=== PATIENT | female | born 1980 | race Caucasian/White ===

== ENCOUNTER 2022-12-24 01:43 | Observation (INO) ==
[2022-12-24] MEDS ORDERED: IOPAMIDOL 100 ML BOTTLE IV ONE (01:44)
[2022-12-24] MEDS ORDERED: PHENobarb/HYOSCY/ATROPINE/SCOP 1 DOSE BOTTLE PO ONE (01:59)
[2022-12-24] MEDS ORDERED: KETOROLAC 30 MG/ML VIAL IV ONE (02:05)
[2022-12-24] MEDS ORDERED: 0.9 % SODIUM CHLORIDE 1,000 ML IV ONE (02:05)
[2022-12-24] MEDS ORDERED: ONDANSETRON 4 MG/2 ML VIAL IV ONE ×2 (02:05→08:47)
[2022-12-24 02:10] LABS: POC Calcium, Ionized 1.21 (1.16-1.32); POC Creatinine 0.6 (0.6-1.2); POC Potassium 3.3 (3.3-5.1)
--- NOTE | 2022-12-24 02:33 | Emergency Department Note ---
Abdominal Pain HPI General Chief Complaint: Abdominal Pain Stated Complaint: Abdominal Pain Time Seen by Provider: 12/24/22 01:53 Source: patient Mode of arrival: ambulatory Limitations: no limitations History of Present Illness HPI Narrative: Narrative: Patient presents ED with complaints of abdominal pain x6 hours prior to arrival. She rates her pain 8/10. She states his all over her belly but worse in her ep igastric region. She states she has a history of gastritis and takes omeprazole fairly consistently. She states it is a stabbing feeling. She denies fever, chills, hematemesis, melena, hematochezia, diarrhea, constipation, dysuria, hematuria, urinary frequency, flank pain, cardiac chest pain. States she does have some nausea and she vomited 1 time today. She denies any yrur-xlp-bnserin medication. She denies any other alleviating or aggravating factors. Related Data Home Medications Medication Instructions Recorded Confirmed cholecalciferol (vitamin D3) 4,000 unit PO QDAY 03/11/21 09/18/22 chromium polynicotinate-alpha 1 cap PO BID 03/11/21 09/18/22 lipoic acid 200 mcg-60 mg capsule fexofenadine [Amber Allergy] PO QDAY 03/11/21 09/18/22 Previous Rx's Medication Instructions Recorded ciclopirox 8 % topical solution 1 applic topical QHS 4 weeks #6.6 03/14/21 mL clobetasol 0.05 % topical cream 1 applic topical BID 1 week #30 11/18/21 grams trazodone 50 mg tablet 25 mg PO QDAY #30 tabs 06/03/22 omeprazole 20 mg capsule,delayed 20 mg PO QDAY PRN gerd #60 caps 06/19/22 release amoxicillin 875 mg tablet 875 mg PO BID 7 days #14 tabs 09/18/22 drospirenone 3 mg-ethinyl 1 tab PO QDAY #84 tabs 09/18/22 estradiol 0.02 mg tablet (RALEIGH (28)) escitalopram oxalate 5 mg tablet 5 mg PO QDAY #90 tabs 09/18/22 (Lexapro) fluconazole 150 mg tablet 150 mg PO Q3D 2 doses #2 tabs 09/18/22 (Diflucan) alprazolam 1 mg tablet 0.5 mg PO .COMPLEX #4 tabs 10/31/22 Allergies Allergy/AdvReac Type Severity Reaction Status Date / Time No Known Drug Allergies Allergy Verified 09/18/22 10:05 Review of Systems ROS ROS Narrative: Narrative: All systems ED: reviewed and negative except as stated. [facility] Narrative Patient History Narrative: Narrative: Medical/Surgical/Family History All Active Problems (Updated 12/24/22 @ 05:47 by Jeevan Carias DO) Cholelithiasis (Acute) Hot flashes (Acute) GERD (gastroesophageal reflux disease) (Acute) Toenail fungus (Acute) Nausea (Chronic) Seasonal allergies (Chronic) Gastritis (Chronic) Left foot pain (Chronic) Menorrhagia (Chronic) Weight gain (Chronic) Seborrheic keratosis (Chronic) Keratosis pilaris (Chronic) HPV (human papilloma virus) infection (Chronic) Fibrocystic change of breast (Chronic 09/25/14) Anxiety (Chronic) Allergic rhinitis (Chronic) Cystic acne (Chronic) Medical History Allergic rhinitis Anemia in high school, iron deficiency anemia - treated with oral iron and not reoccured Anxiety Chest pain Cystic acne Fibrocystic change of breast (09/25/14) Gastritis HPV (human papilloma virus) infection 18 yrs old - has not had an abnormal pap since cryotherapy done Hyperlipidemia 2006 - that has been diet controlled; attributes this to Adkin's diet, no problems since that time Keratosis pilaris Left foot pain Menorrhagia Nausea Seasonal allergies Seborrheic keratosis Weight gain Surgical History History of breast surgery 2010 - breast lift History of cryosurgery 18 yrs old - of lesion - for abnormal pap smear; no reccurance History of laparoscopy 2002 - exploratory for abdominal pain that was normal per Dr. Mondragon History of right oophorectomy 2009 right ovary removed for ovarian torsion Family History Grandmother Alzheimer's disease Maternal Son Asthma Melanoma of skin Mother Depression Diabetes mellitus, type II insulin controlled Melanoma of skin Thyroid disorder Father Essential hypertension Brother Melanoma of skin Grandfather Alzheimer's disease Maternal Social History Smoking Status: Never smoker Alcohol Intake Frequency: does not drink Substance Use: does not use Exam Narrative Narrative: Narrative: General Limitations: no limitations General appearance: Present grimacing ENT ENT: Present normal oropharynx and mucous membranes moist Chest Chest: Present normal inspection; Absent tenderness Respiratory Respiratory: Present normal lung sounds bilaterally; Absent respiratory distress Cardiovascular Cardiovascular: Present regular rate and normal rhythm Adbominal Abdominal: Present soft, tenderness and normal bowel sounds Expanded Abdominal Abdominal Tenderness: Present RLQ, LLQ and epigastrium Extremities Extremities: Present normal capillary refill Back Back: Absent CVA tenderness (R) or CVA tenderness (L) Neurological Neurological: Present alert and oriented X3 Psychiatric Psychiatric: Present normal affect and normal mood Skin Skin: Present warm (WNL) and intact Course Course Course Narrative: Patient was evaluated for abdominal pain. Labs were obtained unremarkable with exception of mildly elevated amylase and lipase. Liver enzymes were unremarkable. Urine unremarkable. Urine negative. Patient with IV fluids, fentanyl and Toradol as well as some Zofran and her pain did improve as well as her nausea. CT abdomen pelvis obtained with image of myself which showed multiple calcified stones within the gallbladder with mild gallbladder wall thickening. We will obtain ultrasound to evaluate for hepatic duct dilatation and for further evaluation of the gallbladder. Patient is unsure if she wants to have surgery. Patient will be signed out to Dr. Cunha pending right upper quadrant ultrasound and discussion with general surgery. Vital Signs Vital signs: Vital Signs Temperature 97.9 F 12/24/22 01:44 Pulse Rate 69 12/24/22 01:44 Respiratory Rate 18 12/24/22 01:44 Blood Pressure 159/105 12/24/22 01:44 Pulse Oximetry (%) 99 12/24/22 01:44 Oxygen Delivery Method Room Air 12/24/22 01:44 Temperature 97.9 F 12/24/22 01:44 Pulse Rate 81 12/24/22 05:54 Respiratory Rate 18 12/24/22 01:44 Blood Pressure 119/94 12/24/22 05:54 Pulse Oximetry (%) 97 12/24/22 05:54 Oxygen Delivery Method Room Air 12/24/22 01:44 MDM MDM Narrative Medical decision making narrative: Narrative: Differential Diagnosis Differential Diagnosis: Small bowel obstruction, pancreatitis, diverticulitis, cholecystitis, gastr Medical Records Medical records reviewed: Yes I reviewed the patient's medical records. Lab Data Lab results reviewed: Yes I reviewed the patient's lab results. 12/24/22 02:05 Labs: Lab Results 12/24/22 12/24/22 12/24/22 Range/Units 02:05 02:05 02:06 WBC 6.0 (4.5-11.0) K/mcL RBC 4.66 (3.59-5.38) M/mcL Hgb 12.6 (11.2-15.7) g/dL Hct 37.9 (34.1-44.9) % POC Hct 38.0 (36-48) MCV 81.3 (80.0-100.0) fL MCH 27.0 (26.0-34.0) pg MCHC 33.2 (31.0-36.0) g/dL RDW 13.4 (11.5-14.5) % Plt Count 278 (140-440) K/mcL MPV 10.2 (8.8-12.5) fL Immature Gran % (Auto) 0.2 (0.0-0.5) % Neut % (Auto) 27.3 L (38.0-78.0) % Lymph % (Auto) 61.0 H (15.5-49.0) % [place] % (Auto) 8.5 (1.0-12.0) % Eos % (Auto) 2.3 (0.0-7.0) % Baso % (Auto) 0.7 (0.0-2.0) % Lymph # (Auto) 3.67 (1.50-4.80) K/mcL [place] # (Auto) 0.51 (0.10-0.90) K/mcL Eos # (Auto) 0.14 (0.00-0.70) K/mcL Baso # (Auto) 0.04 (0.00-0.30) K/mcL Immature Gran # 0.01 (0.00-0.05) K/mcl Absolute Neutrophils 1.65 L (1.80-8.00) K/mcL POC Sodium 143 (133-145) POC Potassium 3.3 (3.3-5.1) POC Chloride 107 (96-108) POC Total CO2 25.0 (22-30) POC BUN 12 (6-20) POC Creatinine 0.6 (0.6-1.2) POC Glucose 130 H (70-105) POC WB Ioniz Calcium 1.21 (1.16-1.32) Total Bilirubin < 0.2 (0.1-1.0) mg/dL Direct Bilirubin < 0.2 (0-0.3) mg/dL AST 10 (<32) U/L ALT 10 (<40) U/L Alkaline Phosphatase 40 (39-117) U/L Total Protein 6.5 (5.9-8.4) gm/dL Albumin 4.1 (3.2-5.2) gm/dL Globulin 2.4 (2.2-3.7) gm/dL Amylase 101 H (28-100) U/L Lipase 75 H (7-60) U/L ED POC Tests ED POC Tests: HCG POC Results Negative Core Measures AMI Core Measures Followed: Yes Discharge Plan Patient/Caregiver Discharge Instructions Pt seen by HEATING AND REFRIGERATION INSPECTOR/PA only: No Clinical Impression: Cholelithiasis Patient Disposition: Still a Patient Condition: Good Follow up with: Yecenia Brice PA-C [Primary Care Provider] - Prescriptions: No Action trazodone 50 mg tablet 25 mg PO QDAY Qty: 30 0RF omeprazole 20 mg capsule,delayed release(DR/EC) 20 mg PO QDAY PRN (Reason: gerd) Qty: 60 0RF alprazolam 1 mg tablet 0.5 mg PO .COMPLEX Qty: 4 0RF Rx Instructions: 0.5 mg PO 30 minutes before flight; ciclopirox 8 % solution 1 applic topical QHS 28 Days Qty: 6.6 0RF chromium polynicotin-alip acid 200-60 mcg-mg capsule 1 cap PO BID fexofenadine PO QDAY cholecalciferol (vitamin D3) 4,000 unit PO QDAY clobetasol 0.05 % cream 1 applic topical BID 7 Days Qty: 30 0RF amoxicillin 875 mg tablet 875 mg PO BID 7 Days Qty: 14 0RF fluconazole [Diflucan] 150 mg tablet 150 mg PO Q3D Qty: 2 0RF escitalopram oxalate [Lexapro] 5 mg tablet 5 mg PO QDAY Qty: 90 3RF drospirenone-ethinyl estradiol [RALEIGH (28)] 3-0.02 mg tablet 1 tab PO QDAY Qty: 84 3RF
[2022-12-24 03:15] LABS: Basophils # (Auto) 0.04 K/mcL (0.00-0.30); Basophils % (Auto) 0.7 % (0.0-2.0); Eosinophils # (Auto) 0.14 K/mcL (0.00-0.70); Eosinophils % (Auto) 2.3 % (0.0-7.0); Hematocrit 37.9 % (34.1-44.9); Hemoglobin 12.6 g/dL (11.2-15.7); Lymphocytes # (Auto) 3.67 K/mcL (1.50-4.80); Mean Cell Volume 81.3 fL (80.0-100.0); Mean Corpuscular HGB Conc 33.2 g/dL (31.0-36.0); Mean Platelet Volume 10.2 fL (8.8-12.5); Monocytes # (Auto) 0.51 K/mcL (0.10-0.90); Monocytes % (Auto) 8.5 % (1.0-12.0); Neutrophils % (Auto) 27.3 % (38.0-78.0); Platelet Count 278 K/mcL (140-440); RBC 4.66 M/mcL (3.59-5.38); Red Cell Distribution Width 13.4 % (11.5-14.5)
[2022-12-24 03:37] LABS: Amylase 101 U/L (28-100)
[2022-12-24 03:42] LABS: ALT/SGPT 10 U/L (<40); AST/SGOT 10 U/L (<32); Albumin 4.1 gm/dL (3.2-5.2); Alkaline Phosphatase 40 U/L (39-117); Bilirubin,Direct < 0.2 mg/dL (0-0.3); Bilirubin,Total < 0.2 mg/dL (0.1-1.0); Globulin 2.4 gm/dL (2.2-3.7)
--- NOTE | 2022-12-24 08:05 | Emergency Department Note ---
Course Course Course Narrative: Patient is a 42-year-old female who was signed out to me by Dr. Carias. Briefly, patient presented due to abdominal pain. A CT scan was performed and there was some suggestion of gallbladder wall thickening, so an ultrasound was ordered. This was pending at the time of signout. Vital Signs Vital signs: Vital Signs Temperature 97.9 F 12/24/22 01:44 Pulse Rate 69 12/24/22 01:44 Respiratory Rate 18 12/24/22 01:44 Blood Pressure 159/105 12/24/22 01:44 Pulse Oximetry (%) 99 12/24/22 01:44 Oxygen Delivery Method Room Air 12/24/22 01:44 Temperature 97.9 F 12/25/22 18:45 Pulse Rate 87 12/25/22 18:45 Respiratory Rate 20 12/25/22 18:45 Blood Pressure 138/88 12/25/22 18:45 Pulse Oximetry (%) 95 12/25/22 18:45 Oxygen Delivery Method Room Air 12/25/22 18:45 Oxygen Flow Rate (L/min) 6 12/25/22 15:26 MDM MDM Narrative Medical decision making narrative: Narrative: Patient is a 42-year-old female who presents to the emergency department due to abdominal pain. Again as stated before patient was found on CT to have multiple calcified gallstones distended gallbladder and may be mild gallbladder wall edema/thickening. Ultrasound has resulted and again demonstrates gallbladder distention and mild gallbladder wall thickening. Patient's labs overall are reassuring, but patient's lipase is very mildly elevated to 75. Due to these findings I did speak with Dr. Enriquez. He requested an MRCP due to the mildly elevated lipase. MRCP was performed and did not demonstrate stone or dilation of biliary tract. I spoke to patient about these findings, and again spoke to Dr. Enriquez. Dr. Enriquez has agreed to admit patient. After talking with Dr. Enriquez again I was informed that the patient and her had questions. At that time they asked if it was possible to request a surgeon. They told me that a close family friend recommended Dr. Mcgill. I spoke to Samantha our charge nurse about this who spoke to her hothouse worker [place]. She reached out to the operating room who stated that this is possible, but that I would need to speak to Dr. Enriuqez first. I spoke to Dr. Enriquez who stated that he was willing to reach out to Dr. Mcgill. Dr. Enriquez spoke to Dr. Mcgill who has agreed to care for patient. Lab Data 12/24/22 02:05 Labs: Lab Results 12/24/22 12/24/22 12/24/22 Range/Units 02:05 02:05 02:06 WBC 6.0 (4.5-11.0) K/mcL RBC 4.66 (3.59-5.38) M/mcL Hgb 12.6 (11.2-15.7) g/dL Hct 37.9 (34.1-44.9) % POC Hct 38.0 (36-48) MCV 81.3 (80.0-100.0) fL MCH 27.0 (26.0-34.0) pg MCHC 33.2 (31.0-36.0) g/dL RDW 13.4 (11.5-14.5) % Plt Count 278 (140-440) K/mcL MPV 10.2 (8.8-12.5) fL Immature Gran % (Auto) 0.2 (0.0-0.5) % Neut % (Auto) 27.3 L (38.0-78.0) % Lymph % (Auto) 61.0 H (15.5-49.0) % [place] % (Auto) 8.5 (1.0-12.0) % Eos % (Auto) 2.3 (0.0-7.0) % Baso % (Auto) 0.7 (0.0-2.0) % Lymph # (Auto) 3.67 (1.50-4.80) K/mcL [place] # (Auto) 0.51 (0.10-0.90) K/mcL Eos # (Auto) 0.14 (0.00-0.70) K/mcL Baso # (Auto) 0.04 (0.00-0.30) K/mcL Immature Gran # 0.01 (0.00-0.05) K/mcl Absolute Neutrophils 1.65 L (1.80-8.00) K/mcL POC Sodium 143 (133-145) POC Potassium 3.3 (3.3-5.1) POC Chloride 107 (96-108) POC Total CO2 25.0 (22-30) POC BUN 12 (6-20) POC Creatinine 0.6 (0.6-1.2) POC Glucose 130 H (70-105) POC WB Ioniz Calcium 1.21 (1.16-1.32) Total Bilirubin < 0.2 (0.1-1.0) mg/dL Direct Bilirubin < 0.2 (0-0.3) mg/dL AST 10 (<32) U/L ALT 10 (<40) U/L Alkaline Phosphatase 40 (39-117) U/L C-Reactive Protein (0.03-0.80) mg/dL Total Protein 6.5 (5.9-8.4) gm/dL Albumin 4.1 (3.2-5.2) gm/dL Globulin 2.4 (2.2-3.7) gm/dL Amylase 101 H (28-100) U/L Lipase 75 H (7-60) U/L 12/24/22 Range/Units 02:06 WBC (4.5-11.0) K/mcL RBC (3.59-5.38) M/mcL Hgb (11.2-15.7) g/dL Hct (34.1-44.9) % POC Hct (36-48) MCV (80.0-100.0) fL MCH (26.0-34.0) pg MCHC (31.0-36.0) g/dL RDW (11.5-14.5) % Plt Count (140-440) K/mcL MPV (8.8-12.5) fL Immature Gran % (Auto) (0.0-0.5) % Neut % (Auto) (38.0-78.0) % Lymph % (Auto) (15.5-49.0) % [place] % (Auto) (1.0-12.0) % Eos % (Auto) (0.0-7.0) % Baso % (Auto) (0.0-2.0) % Lymph # (Auto) (1.50-4.80) K/mcL [place] # (Auto) (0.10-0.90) K/mcL Eos # (Auto) (0.00-0.70) K/mcL Baso # (Auto) (0.00-0.30) K/mcL Immature Gran # (0.00-0.05) K/mcl Absolute Neutrophils (1.80-8.00) K/mcL POC Sodium (133-145) POC Potassium (3.3-5.1) POC Chloride (96-108) POC Total CO2 (22-30) POC BUN (6-20) POC Creatinine (0.6-1.2) POC Glucose (70-105) POC WB Ioniz Calcium (1.16-1.32) Total Bilirubin (0.1-1.0) mg/dL Direct Bilirubin (0-0.3) mg/dL AST (<32) U/L ALT (<40) U/L Alkaline Phosphatase (39-117) U/L C-Reactive Protein < 0.30 (0.03-0.80) mg/dL Total Protein (5.9-8.4) gm/dL Albumin (3.2-5.2) gm/dL Globulin (2.2-3.7) gm/dL Amylase (28-100) U/L Lipase (7-60) U/L ED POC Tests ED POC Tests: HCG POC Results Negative Discharge Plan Patient/Caregiver Discharge Instructions Pt seen by FACILITIES MAINTENANCE TECHNICIAN/PA only: No Clinical Impression: Cholelithiasis Activity: increase activity as tolerated Patient Disposition: Xfer As Inpt ([facility]) Condition: Good Discharge Date/Time: 12/24/22 16:20
[2022-12-24] MEDS ORDERED: morphine 4 MG/ML VIAL IV ONE (08:46)
[2022-12-24 09:19] LABS: C-Reactive Protein < 0.30 mg/dL (0.03-0.80)
--- NOTE | 2022-12-24 10:42 | Cat Scan Report ---
CLINICAL INFORMATION: Diffuse abdominal pain COMPARISON: None. TECHNIQUE: Following enteric contrast, 80 cc of Isovue-370 were injected intravenously, and 60 seconds later, 0.625 mm helical slices were obtained from the mid heart through the subtrochanteric regions. Following reconstruction, 2.5 mm sagittal, coronal and axial reformatted images were processed and reviewed at bone, lung and soft tissue windows. Five minutes later, 0.625 mm helical slices were obtained from the mid heart through the kidneys and viewed at soft tissue windows.The exam was performed using radiation dose optimization techniques including, but not limited to, automated exposure control, adjustment of the mA and/or kV according to patient size and use of iterative reconstruction technique. FINDINGS: The lung bases are clear. No effusions. The visualized heart is grossly normal. Mild wall thickening the distal esophagus suggests peptic disease or other infiltrative pathology. Abdominal images show mild hepatomegaly with a vertical dimension liver 17 cm in midclavicular line. This also mild diffuse fatty change and equivocal periportal edema. There are 4-5 cholesterol stones in the gallbladder body neck ranging up to 17 mm. Equivocal wall thickening of the gallbladder appreciated. The intrahepatic and common bile ducts are normal caliber: CBD is 6 mm. Both kidneys, adrenal glands, spleen, pancreas and aorta, including aortic branches, are normal in size, configuration and attenuation without focal lesion. There is no free air, free fluid or adenopathy. Pelvic images show normal urinary bladder. Uterus is retroflexed, but normal in size: 7 x 4.3 cm. The myometrium is inhomogeneous which typically indicates adenomyosis or, less likely, endometritis. There is a 3.1 cm simple cyst on the left ovary. Right ovary is surgically absent... The stomach, small bowel, appendix region and large bowel are grossly normal. Bone windows show no osseous abnormality IMPRESSION: 1. Cholelithiasis. 2. Mild gallbladder wall thickening suggests possible associated cholecystitis. Suggest ultrasound. 3. Mild hepatomegaly with inhomogeneous low attenuation and periportal edema suggesting hepatitis or other diffuse hepatopathy. Please correlate with LFTs. 4. Concentric wall thickening of the distal esophagus suggesting peptic disease. 5. 3.1 cm cyst left ovary 6. Retroflexed uterus with inhomogeneous myometrial attenuation typically indicating adenomyosis. Interpreted and Authenticated by: Darion Chen 12/24/22
--- NOTE | 2022-12-24 10:44 | Ultrasound Report ---
CLINICAL INFORMATION: Right upper quadrant pain COMPARISON: None. FINDINGS: There are multiple (4-5 and (stones ranging up to 1.7 cm the gallbladder. Gallbladder is enlarged with mild wall thickening compatible with associated cholecystitis. Focal tenderness noted. Common bile duct is normal at 4 mm. Liver is mildly enlarged elevated echotexture suggesting fatty change or other diffuse hepatic process. No focal hepatic lesion. Pancreas normal. No free fluid. IMPRESSION: Cholelithiasis with cholecystitis. Mild hepatomegaly Interpreted and Authenticated by: Darion Chen 12/24/22
--- NOTE | 2022-12-24 12:08 | Magnetic Resonance Report ---
CLINICAL INFORMATION: Abdominal pain. COMPARISON: None. TECHNIQUE: MRCP was performed using 3D FRFSE respiratory triggered and single-shot FSE thick slab technique. Axial T2 SSFSE and coronal SSFSE images were obtained through the upper abdomen as well. FINDINGS: The gallbladder is mildly enlarged with mild diffuse wall thickening and pericholecystic fluid. There are 4-5 stones ranging up to 12 mm in the gallbladder neck. Findings are compatible with cholecystitis. Intrahepatic common hepatic and common bile ducts are normal caliber CBD is 6 mm. 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 The liver is normal, overall, in size and signal. No focal hepatic lesions. The pancreatic duct is normal caliber is 2 mm. The pancreas, both adrenal glands, both kidneys, spleen and aorta are normal in size configuration and signal intensity without focal lesion. There is no free air, free fluid or adenopathy. IMPRESSION: Cholecystitis. Intrahepatic and common bile ducts are normal in caliber. 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 Interpreted and Authenticated by: Darion Chen 12/24/22
[2022-12-24] MEDS ORDERED: PIPERACILLIN SODIUM/TAZOBACTAM 3.375 GM in DEXTROSE 5% IN WATER 50 ML IV SCH (13:00)
[2022-12-24] MEDS ORDERED: DEXTROSE 5%-LR 1,000 ML IV SCH (13:00)
[2022-12-24] MEDS ORDERED: HYDROmorphone 0.5 MG/0.5 ML SYRINGE IV PRN ×2 (13:01→15:49)
[2022-12-24] MEDS: ONDANSETRON 4 MG/2 ML VIAL IV PRN ×2 (14:21→15:47)
--- NOTE | 2022-12-24 14:28 | General Surgery Consult Note ---
HPI Date of Consult Consult Date: 12/24/22 Requesting physician: Booker Cunha Primary Care Provider: Yecenia Brice PA-C Consult Narrative Chief complaint: Abdominal Pain Reason for consult: Cholecystitis History of present illness: Jackie is seen in consultation today after a several day history of worsening abdominal pain prompted visitation to the ER in the middle of the night with pain and severe nausea and vomiting. Work up has consisted of both a RUQ US and an Abdominal CT which demonstrate findings consistent with Cholelithiasis as well as inflammatory changes around the gallbladder. She has a normal WBC with no left shift and her CRP is normal. LFTs were also normal but there was a mild increase in pancreatic enzymes. She feels much improved from presentation but continues to require pain medication. She has no significant Cardiac or Pulmonary issue and denies any use of oral anticoagulants. She has not been jaundiced or had acholic stools. She has had prior abdominal operations including an Ovarian Torsion and a Diagnostic Laparoscopy. She is accompanied by her in the ER cc:: CC: Review of Systems All systems: reviewed and no additional remarkable complaints except as stated Constitutional Additional comments: no weight loss, fevers or chills EENT Additional comments: no notable ENT changes Cardiovascular Additional comments: no chest pain Respiratory Additional comments: no cough or SOB Gastrointestinal Additional comments: see HPI Integumentary Additional comments: no changes Neurological Additional comments: no changes Hematologic/Lymphatic Hematologic/Lymphatic: Absent lymphadenopathy PFSH PFSH All Active Problems Cholelithiasis (Acute) Hot flashes (Acute) GERD (gastroesophageal reflux disease) (Acute) Toenail fungus (Acute) Nausea (Chronic) Seasonal allergies (Chronic) Gastritis (Chronic) Left foot pain (Chronic) Menorrhagia (Chronic) Weight gain (Chronic) Seborrheic keratosis (Chronic) Keratosis pilaris (Chronic) HPV (human papilloma virus) infection (Chronic) Fibrocystic change of breast (Chronic 09/25/14) Anxiety (Chronic) Allergic rhinitis (Chronic) Cystic acne (Chronic) Medical History Allergic rhinitis Anemia in high school, iron deficiency anemia - treated with oral iron and not reoccured Anxiety Chest pain Cystic acne Fibrocystic change of breast (09/25/14) Gastritis HPV (human papilloma virus) infection 18 yrs old - has not had an abnormal pap since cryotherapy done Hyperlipidemia 2006 - that has been diet controlled; attributes this to Adkin's diet, no problems since that time Keratosis pilaris Left foot pain Menorrhagia Nausea Seasonal allergies Seborrheic keratosis Weight gain Surgical History History of breast surgery 2010 - breast lift History of cryosurgery 18 yrs old - of lesion - for abnormal pap smear; no reccurance History of laparoscopy 2002 - exploratory for abdominal pain that was normal per Dr. Mondragon History of right oophorectomy 2009 right ovary removed for ovarian torsion Family History Grandmother Alzheimer's disease Maternal Son Asthma Melanoma of skin Mother Depression Diabetes mellitus, type II insulin controlled Melanoma of skin Thyroid disorder Father Essential hypertension Brother Melanoma of skin Grandfather Alzheimer's disease Maternal Social History household members: spouse housing: house lives independently: Yes marital status: education level: college service: No occupational status: employed occupation: [employer] leisure activities: other hx recent travel: Yes ([place]) details: 09/07/16 sexually active: Yes well-balanced diet: about half the time high-fat food intake: 2 times daily daily servings fruits/ve-4 daily servings of milk/calcium: 0-1 eating out: 4 or more times/week reads food labels: seldom or never during the past year weight has: other details: weight goes up and down physical activity: weight training frequency: 1-2 times per week smoking status: Never smoker alcohol intake frequency: does not drink substance use type: does not use mima/druze: Cheondoism seatbelt use: always helmet use: Yes working smoke detector in home: Yes carbon monox detector in home: Yes MEDS/ALLERGIES Home Medications and Allergies Home Medications Medication Instructions Recorded Confirmed Type cholecalciferol (vitamin D3) 4,000 unit PO QDAY 03/11/21 09/18/22 History chromium polynicotinate-alpha 1 cap PO BID 03/11/21 09/18/22 History lipoic acid 200 mcg-60 mg capsule fexofenadine [Amber Allergy] PO QDAY 03/11/21 09/18/22 History ciclopirox 8 % topical solution 1 applic topical QHS 4 weeks #6.6 03/14/21 09/18/22 Rx mL clobetasol 0.05 % topical cream 1 applic topical BID 1 week #30 11/18/21 09/18/22 Rx grams trazodone 50 mg tablet 25 mg PO QDAY #30 tabs 06/03/22 09/18/22 Rx omeprazole 20 mg capsule,delayed 20 mg PO QDAY PRN gerd #60 caps 06/19/22 09/18/22 Rx release amoxicillin 875 mg tablet 875 mg PO BID 7 days #14 tabs 09/18/22 09/18/22 Rx drospirenone 3 mg-ethinyl 1 tab PO QDAY #84 tabs 09/18/22 09/18/22 Rx estradiol 0.02 mg tablet (RALEIGH (28)) escitalopram oxalate 5 mg tablet 5 mg PO QDAY #90 tabs 09/18/22 09/18/22 Rx (Lexapro) fluconazole 150 mg tablet 150 mg PO Q3D 2 doses #2 tabs 09/18/22 09/18/22 Rx (Diflucan) alprazolam 1 mg tablet 0.5 mg PO .COMPLEX #4 tabs 10/31/22 Rx Allergies Allergy/AdvReac Type Severity Reaction Status Date / Time No Known Drug Allergies Allergy Verified 09/18/22 10:05 Physical Examination Vital Signs Vital signs: Temp Pulse Resp BP Pulse Ox O2 Del Method 97.9 F 89 18 135/86 98 Room Air 12/24/22 01:44 12/24/22 14:01 12/24/22 01:44 12/24/22 14:01 12/24/22 14:01 12/24/22 01:44 General physical appearance General physical exam: other (conversant, non toxic ) Eyes Eye exam: normal ocular movement; negative icteric ENT ENT exam: other (normal appearance ) Head Head exam IM: Present atraumatic, normal inspection and normocephalic Neck Neck exam: trachea midline and other (normal appearance ) Cardiovascular Cardiovascular exam IM: Present normal rate and rhythm Respiratory Respiratory exam: normal respiratory effort Abdomen Abdomen: Present soft (soft and non distended, mildly obese, some TTP in RUQ and Mid Upper Abdomen ) Integumentary Integumentary: Present other (normal appearing intact skin ) Neurologic Neurologic: Present other (grossly intact ) Psychiatric Psychiatric: Present oriented to time, oriented to person and oriented to place Results Labs 12/24/22 02:05 Labs: Abnormal lab results 12/24/22 12/24/22 12/24/22 Range/Units 02:05 02:05 02:06 Neut % (Auto) 27.3 L (38.0-78.0) % Lymph % (Auto) 61.0 H (15.5-49.0) % Absolute Neutrophils 1.65 L (1.80-8.00) K/mcL POC Glucose 130 H (70-105) Amylase 101 H (28-100) U/L Lipase 75 H (7-60) U/L Diabetes panel 12/24/22 Range/Units 02:05 AST 10 (<32) U/L ALT 10 (<40) U/L Alkaline Phosphatase 40 (39-117) U/L Total Protein 6.5 (5.9-8.4) gm/dL Albumin 4.1 (3.2-5.2) gm/dL Calcium panel 12/24/22 Range/Units 02:05 Albumin 4.1 (3.2-5.2) gm/dL Adrenal panel 12/24/22 Range/Units 02:05 Total Bilirubin < 0.2 (0.1-1.0) mg/dL AST 10 (<32) U/L ALT 10 (<40) U/L Alkaline Phosphatase 40 (39-117) U/L Total Protein 6.5 (5.9-8.4) gm/dL Albumin 4.1 (3.2-5.2) gm/dL All other labs normal. A/P Assessment and plan (1) Cholelithiasis: Assessment and plan: Symptomatic Cholelithiasis with possible Cholecystitis Recommend an MRCP to assure no evidence of recently passed or retained common duct stone Assuming MRCP is negative for any evidence of a retained Common Duct Stone, would recommend admission for IVFs, IV ABs and progression to the OR for Laparoscopic Choleycstectomy in the coming days Risks, benefits, potential complications and alternative options are all reviewed and discussed at length and they would like to proceed Status: Acute Time Spent With Patient Time: Total time spent is greater than 50% in coordination of care (as documented) at patient's floor/unit and/or counseling patient:
[2022-12-24] MEDS ORDERED: ONDANSETRON 4 MG/2 ML VIAL IV PRN (15:49)
--- NOTE | 2022-12-24 15:56 | General Surg History&Physical ---
HPI History of Present Illness Patient information: Note initiated : 12/24/22 at 3:54 pm Service Date, if different from initiated Date: [] Patient: Jackie Fairbanks 42 y/o F admitted on for Abdominal Pain. Chief Complaint: [] Chief complaint: Epigastric abdominal pain History of present illness: Ms. Fairbanks is a 42 year old F who was initially seen by Dr. Enriquez for work-up in the emergency room and diagnosis of acute cholecystitis. Patient asked for another surgeon secondary to going me as an outpatient. Patient presented with 1 day history of epigastric abdominal pain which is gradually gotten worse and started bothering her last night. She was brought to the emergency room where CT scan was read as cholelithiasis, possible cholecystitis. Right upper quadrant ultrasound is read as acute cholecystitis, Dr. Enriquez saw and evaluate the patient and secondary to mildly elevated amylase decided to get a MRCP to rule out choledocholithiasis or gallstone pancreatitis. MRCP was read as consistent with acute cholecystitis. Upon further discussion with the patient she reports that she has likely had symptomatic cholelithiasis for a while, however was unsure what was causing her pain and problems until it got bad last night. She denies any fevers chills nausea or vomiting. In the emergency room she has been afebrile with normal vital signs. Her white count and LFTs are within normal limits. Her amylase is mildly elevated. Review of Systems Review of systems: All systems are reviewed, negative other than above PFSH PFSH All Active Problems (Updated 12/24/22 @ 15:56 by Davidson Mcgill MD) Acute cholecystitis (Acute) Cholelithiasis (Acute) Hot flashes (Acute) GERD (gastroesophageal reflux disease) (Acute) Toenail fungus (Acute) Nausea (Chronic) Seasonal allergies (Chronic) Gastritis (Chronic) Left foot pain (Chronic) Menorrhagia (Chronic) Weight gain (Chronic) Seborrheic keratosis (Chronic) Keratosis pilaris (Chronic) HPV (human papilloma virus) infection (Chronic) Fibrocystic change of breast (Chronic 09/25/14) Anxiety (Chronic) Allergic rhinitis (Chronic) Cystic acne (Chronic) Medical History Allergic rhinitis Anemia in high school, iron deficiency anemia - treated with oral iron and not reoccured Anxiety Chest pain Cystic acne Fibrocystic change of breast (09/25/14) Gastritis HPV (human papilloma virus) infection 18 yrs old - has not had an abnormal pap since cryotherapy done Hyperlipidemia 2006 - that has been diet controlled; attributes this to Adkin's diet, no problems since that time Keratosis pilaris Left foot pain Menorrhagia Nausea Seasonal allergies Seborrheic keratosis Weight gain Surgical History History of breast surgery 2009 - breast lift History of cryosurgery 18 yrs old - of lesion - for abnormal pap smear; no reccurance History of laparoscopy 2002 - exploratory for abdominal pain that was normal per Dr. Mondragon History of right oophorectomy 2008 right ovary removed for ovarian torsion Family History Grandmother Alzheimer's disease Maternal Son Asthma Melanoma of skin Mother Depression Diabetes mellitus, type II insulin controlled Melanoma of skin Thyroid disorder Father Essential hypertension Brother Melanoma of skin Grandfather Alzheimer's disease Maternal Social History household members: spouse housing: house lives independently: Yes marital status: education level: college service: No occupational status: employed occupation: [employer] leisure activities: other hx recent travel: Yes ([place]) details: 09/07/16 sexually active: Yes well-balanced diet: about half the time high-fat food intake: 2 times daily daily servings fruits/ve-4 daily servings of milk/calcium: 0-1 eating out: 4 or more times/week reads food labels: seldom or never during the past year weight has: other details: weight goes up and down physical activity: weight training frequency: 1-2 times per week smoking status: Never smoker alcohol intake frequency: does not drink substance use type: does not use mima/sabianist: Islam seatbelt use: always helmet use: Yes working smoke detector in home: Yes carbon monox detector in home: Yes MEDS/ALLERGIES Home Medications and Allergies Home Medications Medication Instructions Recorded Confirmed Type cholecalciferol (vitamin D3) 4,000 unit PO QDAY 03/11/21 09/18/22 History chromium polynicotinate-alpha 1 cap PO BID 03/11/21 09/18/22 History lipoic acid 200 mcg-60 mg capsule fexofenadine [Amber Allergy] PO QDAY 03/11/21 09/18/22 History ciclopirox 8 % topical solution 1 applic topical QHS 4 weeks #6.6 03/14/21 09/18/22 Rx mL clobetasol 0.05 % topical cream 1 applic topical BID 1 week #30 11/18/21 09/18/22 Rx grams trazodone 50 mg tablet 25 mg PO QDAY #30 tabs 06/03/22 09/18/22 Rx omeprazole 20 mg capsule,delayed 20 mg PO QDAY PRN gerd #60 caps 06/19/22 09/18/22 Rx release amoxicillin 875 mg tablet 875 mg PO BID 7 days #14 tabs 09/18/22 09/18/22 Rx drospirenone 3 mg-ethinyl 1 tab PO QDAY #84 tabs 09/18/22 09/18/22 Rx estradiol 0.02 mg tablet (RALEIGH (28)) escitalopram oxalate 5 mg tablet 5 mg PO QDAY #90 tabs 09/18/22 09/18/22 Rx (Lexapro) fluconazole 150 mg tablet 150 mg PO Q3D 2 doses #2 tabs 09/18/22 09/18/22 Rx (Diflucan) alprazolam 1 mg tablet 0.5 mg PO .COMPLEX #4 tabs 10/31/22 Rx Allergies Allergy/AdvReac Type Severity Reaction Status Date / Time No Known Drug Allergies Allergy Verified 09/18/22 10:05 Physical Examination Vital Signs Vital signs: Temp Pulse Resp BP Pulse Ox O2 Del Method 97.9 F 79 18 140/81 98 Room Air 12/24/22 01:44 12/24/22 15:46 12/24/22 01:44 12/24/22 15:46 12/24/22 15:46 12/24/22 01:44 General physical appearance General physical exam: well developed, well nourished and no distress Eyes Eye exam: PERRL and normal ocular movement ENT ENT exam: normal pinna, normal nares, normal mucosa, no hearing loss and no congestion Head Head exam IM: Present atraumatic and normocephalic Neck Neck exam: no masses, no bruits, trachea midline, no lymphadenopathy and no venous distension Cardiovascular Cardiovascular exam IM: Present normal rate and rhythm Respiratory Respiratory exam: normal expansion, normal respiratory effort, clear to percussion and clear to auscultation Abdomen Abdomen: Present soft, tender (RUQ, positive Brown sign) and bowel sounds; Absent masses, rebound or distended Hernia: Present none Genitourinary Genitourinary (Female): Present normal external genitalia Rectum Rectum: Present normal sphincter tone, no hemorrhoids, no tenderness, no masses and no bleeding Integumentary Integumentary: Present no rash, no growths and no abnormal pigmentation Neurologic Neurologic: Present normal coordination and normal sensation Musculoskeletal Musculoskeletal: Present normal gait and normal posture Psychiatric Psychiatric: Present oriented to time, oriented to person, oriented to place, speech is normal and memory intact Results Labs 12/24/22 02:05 Labs: Abnormal lab results 12/24/22 12/24/22 12/24/22 Range/Units 02:05 02:05 02:06 Neut % (Auto) 27.3 L (38.0-78.0) % Lymph % (Auto) 61.0 H (15.5-49.0) % Absolute Neutrophils 1.65 L (1.80-8.00) K/mcL POC Glucose 130 H (70-105) Amylase 101 H (28-100) U/L Lipase 75 H (7-60) U/L Diabetes panel 12/24/22 Range/Units 02:05 AST 10 (<32) U/L ALT 10 (<40) U/L Alkaline Phosphatase 40 (39-117) U/L Total Protein 6.5 (5.9-8.4) gm/dL Albumin 4.1 (3.2-5.2) gm/dL Calcium panel 12/24/22 Range/Units 02:05 Albumin 4.1 (3.2-5.2) gm/dL Adrenal panel 12/24/22 Range/Units 02:05 Total Bilirubin < 0.2 (0.1-1.0) mg/dL AST 10 (<32) U/L ALT 10 (<40) U/L Alkaline Phosphatase 40 (39-117) U/L Total Protein 6.5 (5.9-8.4) gm/dL Albumin 4.1 (3.2-5.2) gm/dL All other labs normal. Imaging CT scan - abdomen: image reviewed US - abdomen: image reviewed Additional studies: MRI report reviewed A/P Assessment and plan (1) Acute cholecystitis: Assessment and plan: This is a pleasant 42-year-old female who presents with signs and symptoms most consistent with acute cholecystitis. Patient has been unable to get pain-free in the emergency department. Work-up for choledocholithiasis also consistent with acute cholecystitis. Long discussion with the patient about admission versus attempted outpatient management. Given the inability to get her pain-free even though she has a normal white count she does have cholecystitis seen on ultrasound and MRCP. I feel admitting to the hospital with urgent surgical intervention would be the best plan of action. Risk, benefits, alternatives to surgical treatment discussed with her at length including details of procedure and what to expect pre and post. She verbalizes understanding, all of her questions are answered and she desires to continue Plan: Admit, n.p.o., IV antibiotics. Robotic cholecystectomy at next available OR time. Status: Acute Time Spent With Patient Time: Total time spent is greater than 50% in coordination of care (as documented) at patient's floor/unit and/or counseling patient:
[2022-12-24] MEDS: DEXTROSE 5%-LR 1,000 ML IV SCH (16:30)
[2022-12-24] MEDS ORDERED: ACETAMINOPHEN 325 MG TABLET PO ONE (17:53)
[2022-12-24] MEDS: PIPERACILLIN SODIUM/TAZOBACTAM 3.375 GM in DEXTROSE 5% IN WATER 50 ML IV SCH ×2 (18:26→23:49)
[2022-12-25] MEDS: DEXTROSE 5%-LR 1,000 ML IV SCH ×3 (02:35→16:16)
[2022-12-25] MEDS: PIPERACILLIN SODIUM/TAZOBACTAM 3.375 GM in DEXTROSE 5% IN WATER 50 ML IV SCH ×3 (05:53→17:30)
--- NOTE | 2022-12-25 08:06 | General Surgery Progress Note ---
SUBJECTIVE Subjective Patient information: Note initiated : 12/25/22 at 8:04 am Service Date, if different from initiated Date: [] Patient: Jackie Fairbanks 42 y/o F admitted on 12/24/22 for Laparoscopic Cholecystectomy. Chief Complaint: [] Principal diagnosis: Acute cholecystitis Interval history: Patient seen and examined, feels much better this morning, has some nausea overnight with pain medication unsure if it was related to pain medication or her cholecystitis. She has no nausea this morning, pain is much improved. Pertinent ROS: No fevers chills or emesis Constitutional Vitals: Vital Signs Temp Pulse Resp BP Pulse Ox O2 Del Method 97.8 F 70 16 112/90 97 Room Air 12/25/22 07:39 12/25/22 07:39 12/25/22 07:39 12/25/22 07:39 12/25/22 07:39 12/25/22 07:39 Period Temp Pulse Resp BP Sys/Montoya Pulse Ox O2 Del Method O2 Flow Rate Last 24 Hr 97.3 F-98.8 F 69-89 16-16 110-153/69-122 95-100 Room Air-Room Air Intake and Output 12/24/22 12/25/22 12/25/22 19:59 03:59 11:59 Intake Total 410 1250 50 Output Total 200 850 Balance 210 400 50 Weight 150 lb 150 lb Intake & Output: Intake & Output 12/24/22 12/25/22 12/25/22 19:59 03:59 11:59 Intake Total 410 1250 50 Output Total 200 850 Balance 210 400 50 Weight 150 lb 150 lb Intake: IV 50 1050 50 Dextrose 5%-Lactated Ringers 1, 1000 000 ml @ 125 mls/hr IV .Q8H [facility] Rx#:[id number] Zosyn 3.375 gm In Dextrose 5% 50 50 50 in Water 50 ml @ 100 mls/hr IV Q6H [facility] Rx#:[id number] Oral 360 200 Output: Void Amount 200 850 Other: Urine Appearance Clear Clear Urine Color Dark Yellow Yellow # Emeses 2 General appearance: cooperative and no acute distress GI/Abdominal GI/Abdominal exam: Present soft and tenderness; Absent distended A/P Assessment and plan (1) Acute cholecystitis: Plan: Acute cholecystitis. Plan cholecystectomy today Status: Acute Time Spent With Patient Time: Total time spent is greater than 50% in coordination of care (as documented) at patient's floor/unit and/or counseling patient:
[2022-12-25] MEDS ORDERED: KETOROLAC 30 MG/ML VIAL ONE (14:10)
[2022-12-25] MEDS ORDERED: MAGNESIUM SULFATE 2 GM/50 ML BAG IV ONE (14:10)
[2022-12-25] MEDS ORDERED: diphenhydrAMINE 50 MG/ML VIAL ONE (14:10)
[2022-12-25] MEDS ORDERED: MIDAZOLAM 5 MG/5 ML VIAL ONE (14:10)
[2022-12-25] MEDS ORDERED: GLYCOPYRROLATE 0.2 MG/ML VIAL IV ONE (14:10)
[2022-12-25] MEDS ORDERED: LIDOCAINE HCL/PF 100 MG/5 ML SYRINGE IV ONE (14:10)
[2022-12-25] MEDS ORDERED: fentaNYL 100 MCG/2 ML VIAL IV ONE (14:10)
[2022-12-25] MEDS ORDERED: ROCURONIUM 10 MG/ML ML IV ONE (14:10)
[2022-12-25] MEDS ORDERED: KETAMINE 50 MG/ML Syringe (ANEST) IV ONE (14:10)
[2022-12-25] MEDS ORDERED: ONDANSETRON 4 MG/2 ML VIAL ONE (14:10)
[2022-12-25] MEDS ORDERED: HYDROmorphone 1 MG/ML SYRINGE ONE (14:10)
[2022-12-25] MEDS ORDERED: SUCCINYLCHOLINE 20 MG/ML ML IV ONE (14:10)
[2022-12-25] MEDS ORDERED: PROPOFOL 200 MG/20 ML VIAL IV ONE (14:10)
[2022-12-25] MEDS ORDERED: NALOXONE HCL 0.4 MG/ML VIAL IV PRN (14:39)
[2022-12-25] MEDS ORDERED: LABETALOL 5 MG/ML ML IV PRN (14:39)
[2022-12-25] MEDS ORDERED: METOPROLOL TARTRATE 5 MG/5 ML VIAL IV PRN (14:39)
[2022-12-25] MEDS ORDERED: PROMETHAZINE 25 MG/ML VIAL IV PRN (14:39)
[2022-12-25] MEDS ORDERED: ACETAMINOPHEN 1,000 MG/100 ML BAG IV ONE (14:39)
[2022-12-25] MEDS ORDERED: MEPERIDINE 25 MG/ML VIAL IV PRN (14:39)
[2022-12-25] MEDS ORDERED: LACTATED RINGERS 250 ML IV PRN (14:39)
[2022-12-25] MEDS ORDERED: fentaNYL 100 MCG/2 ML VIAL IV PRN (14:39)
[2022-12-25] MEDS ORDERED: IPRATROPIUM/ALBUTEROL 3 ML AMPUL.NEB NEB PRN (14:39)
[2022-12-25] MEDS ORDERED: METHOCARBAMOL 1,000 MG/10 ML VIAL IV PRN (14:39)
[2022-12-25] MEDS ORDERED: HYDROmorphone 0.5 MG/0.5 ML SYRINGE IV PRN (14:39)
[2022-12-25] MEDS ORDERED: FLUMAZENIL 0.1 MG/ML ML IV PRN (14:39)
[2022-12-25] MEDS ORDERED: LIDOCAINE W/EPI 0.5% 50 ML VIAL IJ ONE (14:43)
[2022-12-25] MEDS ORDERED: BUPIVACAINE 0.5% 50 ML VIAL IJ ONE (14:43)
[2022-12-25] MEDS ORDERED: LACTATED RINGERS 1,000 ML IV SCH (14:45)
--- NOTE | 2022-12-25 15:00 | Operative Note ---
Brief Operative Note Date of procedure: 12/25/22 Pre-op diagnosis: Acute cholecystitis Post-op diagnosis: same Procedure: Robotic assisted cholecystectomy Grafts/Implants: No Anesthesia: GETA Findings: Consistent with acute cholecystitis, cholelithiasis Complications: none Surgeon: Davidson Mcgill Estimated blood loss (cc): 0 Specimens Removed/Pathology: other (Gallbladder and contents) Condition: stable Disposition: PACU Operative Note Operative Note: After risk benefits and alternatives to the procedure were discussed with the patient at length she verbalized understanding and desire to continue with the procedure. Patient was taken main operating room placed upon the operative table. General anesthesia was induced over endotracheal tube. Patient was prepped and draped in the standard sterile surgical fashion. Surgical timeout was taken to verify patient and procedure being performed. 1% lidocaine half percent Marcaine was used for local anesthesia throughout the case. The abdominal cavity was insufflated with carbon dioxide through a left upper quadrant varies needle which was inserted in the standard fashion. The abdomen was entered under direct vision using a 12 mm Optiview trocar through a right upper quadrant incision. The abdominal cavity was inspected and visual inspection revealed no injuries. A 8 mm supraumbilical, a 8 mm left upper quadrant trocar and an additional 8 mm right upper quadrant trocar was placed under direct vision. Patient was placed in a head up right side up position. The da Joey robot was docked in the standard fashion attention was turned to the gallbladder where the omental attachments to the gallbladder were carefully taken down with bipolar electrocautery. Once this was done the peritoneal attachments were taken down with bipolar electrocautery, the triangle of Jovany was carefully dissected free with blunt dissection. Once a critical view of safety was clearly identified the cystic duct and cystic artery were surgically clipped and transected. The gallbladder was removed from the gallbladder fossa using electrocautery this placed in Endo Catch bag removed through the 12mm incision and passed off the field for surgical pathology. Attention was turned back to the gallbladder fossa which was inspected for hemostasis. The 12mm fascial defect was then reapproximated with a interrupted 0 Vicryl suture. CO2 and trochars were removed from the abdominal cavity under direct vision. Trocar sites were inspected for hemostasis. Skin edges were closed with interrupted 4 Monocryl sutures skin glue dressings were applied. Patient was then awakened from anesthesia transported postanesthesia care unit awake alert in good condition.
--- NOTE | 2022-12-25 15:01 | Discharge Summary ---
Discharge Provider Provider IMPORTANT FOLLOW-UP INFORMATION FOR PCP: Patient information: Note initiated : 12/25/22 at 3:00 pm Service Date, if different from initiated Date: [] Patient: Jackie Fairbanks 42 y/o F admitted on 12/24/22 for Laparoscopic Cholecystectomy. Chief Complaint: [] Date of admission: 12/24/22 16:17 Discharge date: 12/25/22 Primary care physician: Yecenia Brice PA-C Consults: 12/24/22 Consult to Physician [CONS] Stat Comment: Consulting Provider: Davidson Mcgill Reason For Exam: Physician to Consult Consult to Physician [CONS] Stat Comment: Consulting Provider: Osman Enriquez Reason For Exam: Physician to Consult COURSE Hospital Course Hospital course: Patient was admitted for and underwent an uneventful robotic assisted cholecystectomy for acute cholecystitis. Procedure went well and she is being discharged postop. Discharge diagnosis: Acute cholecystitis, status postcholecystectomy Time Spent with Patient Time attestation: Total time spent providing and/or coordinating discharge services: Time spent: Less than 30 minutes Physical Examination Vital Signs Vital signs: Temp Pulse Resp BP Pulse Ox O2 Del Method 97.8 F 70 16 112/90 97 Room Air 12/25/22 07:39 12/25/22 07:39 12/25/22 07:39 12/25/22 07:39 12/25/22 07:39 12/25/22 07:39 Discharge Plan Patient/Caregiver Discharge Instructions Activity: increase activity as tolerated Diet: Regular Diet Activity Restrictions/Additional Instructions: Resume normal activity as tolerated, no weightlifting restrictions. May resume showering starting tonight. Follow-up with me in 2 to 3 weeks. Prescriptions: New acetaminophen [Tylenol 8 Hour] 650 mg tablet extended release 650 mg PO Q8H PRN (Reason: pain) Qty: 90 0RF ibuprofen 600 mg tablet 600 mg PO Q6H PRN (Reason: pain) Qty: 90 0RF oxycodone 5 mg tablet 5 mg PO Q6H PRN (Reason: pain) Qty: 5 0RF Continued omeprazole 20 mg capsule,delayed release(DR/EC) 20 mg PO QDAY PRN (Reason: gerd) Qty: 60 0RF escitalopram oxalate [Lexapro] 5 mg tablet 5 mg PO QDAY Qty: 90 3RF drospirenone-ethinyl estradiol [RALEIGH (28)] 3-0.02 mg tablet 1 tab PO QDAY Qty: 84 3RF fexofenadine 180 mg Tablet 180 mg PO QDAY cholecalciferol (vitamin D3) [Vitamin D3] 50 mcg (2,000 unit) Capsule 100 mcg PO QDAY alprazolam 1 mg tablet 0.5 mg PO .COMPLEX PRN (Reason: Anxiety) Rx Instructions: 0.5 mg PO 30 minutes before flight; Follow Up Plan Follow up with: Yecenia Brice PA-C [Primary Care Provider] - Davidson Mcgill MD [Physician] - Patient Disposition: Home, Self-Care Prognosis: Good Discharge Orders: Discharge Order (Routine); Ordered 12/25/22 Ordered By: Davidson Mcgill Pending Pending Pending: Resuscitation Status Resuscitate (Full Code) Diet NPO after Midnight Diet Start Michelle Dec 25 0001 Dextrose/Lactated Ringer's (Dextrose 5%-Lactated Ringers) 1,000 mls @ 125 mls/hr IV .Q8H TERRENCE Last Infusion: 12/25/22 10:44 Dose: 0 mls/hr Documented By: Admin: 12/25/22 09:03 Dose: Not Given Documented By: Admin: 12/25/22 02:35 Dose: 125 mls/hr Documented By: Infusion: 12/25/22 00:30 Dose: 125 mls/hr Documented By: Admin: 12/24/22 16:30 Dose: 125 mls/hr Documented By: ASTRID Piperacillin Sod/Tazobactam (Sod 3.375 gm/ Dextrose) 50 mls @ 100 mls/hr IV Q6H TERRENCE; Protocol Last Infusion: 12/25/22 11:25 Dose: 0 mls/hr Documented By: Admin: 12/25/22 10:56 Dose: 100 mls/hr Documented By: Infusion: 12/25/22 06:27 Dose: 0 mls/hr Documented By: Admin: 12/25/22 05:53 Dose: 100 mls/hr Documented By: Infusion: 12/25/22 00:19 Dose: 100 mls/hr Documented By: Admin: 12/24/22 23:49 Dose: 100 mls/hr Documented By: Infusion: 12/24/22 18:56 Dose: 100 mls/hr Documented By: Admin: 12/24/22 18:26 Dose: 100 mls/hr Documented By: ASTRID Shift Summary 12/25/22 04:08 Shift Summary by Claire Daigle Admitted 12/24 for acute cholecystitis. Scheduled for surgery 12/25 around 1330. Pt had dilaudid once on day shift, but it made her vomit so she is very reluctant to take any more. Has had no pain meds tonight. Up w/SBA to help w/lines. Voiding per BR,QS. d/c depends on what is found in surgery, and how well she recovers. Initialized on 12/25/22 04:08 - END OF NOTE
== END 2022-12-25 19:04 | disposition home or self-care (01) ==
LOC: MEDSUR 01:43 → ED 01:43 → MEDSUR 16:20
PROVIDERS: ADMIT Surgery; ATTEND Surgery